=== PATIENT | female | born 1985 | race Caucasian/White ===

== ENCOUNTER 2019-01-01 08:19 | Emergency (ER) | payer MEDICAID ==
[~2019-01-01] VITALS: Ht 162.6 cm; Wt 92.5 kg
[2019-01-01 08:28] VITALS: BP 128/90
--- NOTE | 2019-01-01 08:29 | NUR ---
PT AMB TO RESTROOM WITH STEADY GAIT
--- NOTE | 2019-01-01 08:31 | NUR ---
C/O NAUSEA X 2 WEEKS WITH VOMITING AND DIARRHEA X LAST NIGHT. DENIES BLOOD IN DIARRHEA. DENIES AB PAIN. 5/10 DISCOMFORT PAIN WITH VOMITING. BOWEL SOUNDS ACTIVE IN ALL 4 QUADRANTS. NON-TENDER, ROUND AND SOFT. VSS. [id number]. BED IS DOWN, LOCKED, BED RAIL X 1, ERMD TO SEE PT. PMH- DENIES
--- NOTE | 2019-01-01 08:49 | NUR ---
DR LOGAN AT BEDSIDE
[2019-01-01] MEDS ORDERED: ONDANSETRON 4 MG ODT PO ONE (09:00)
--- NOTE | 2019-01-01 09:04 | NUR ---
ZOFRAN PO ADMINISTERED.
--- NOTE | 2019-01-01 09:04 | NUR ---
PT BEING TAKEN TO XRAY VIA WHEELCHAIR
--- NOTE | 2019-01-01 09:48 | NUR ---
PT TALKING ON HER PHONE, STATES SHE STILL FEELS VERY NAUSEATED AFTER ZOFRAN PO. NO VOMITING AT THIS TIME. DR LOGAN NOTIFIED.
[2019-01-01 11:00] VITALS: BP 117/84
--- NOTE | 2019-01-01 11:00 | NUR ---
Patient discharged with v/s stable. Written and verbal after care instructions given and explained. Patient alert, oriented and verbalized understanding of instructions. Ambulatory with steady gait. All questions addressed prior to discharge. ID band removed. Patient advised to follow up with PMD. Rx of ZOFRAN given. Patient educated on indication of medication including possible reaction and side effects. Opportunity to ask questions provided and answered. PT GIVEN EXCUSE FOR WORK AND A COPY OF XRAY RESULTS
== END 2019-01-01 11:00 | disposition home or self-care (01) ==
LOC: MED 08:19
DX: R11.2 Nausea with vomiting, unspecified (principal); R19.7 Diarrhea, unspecified; R06.02 Shortness of breath
CPT/HCPCS: 74022; 81002; 81025; 99283; Q0162

== ENCOUNTER 2021-01-30 05:23 | Emergency (ER) | payer MEDICAID ==
[~2021-01-30] VITALS: Ht 162.6 cm; Wt 99.8 kg
[2021-01-30 05:28] VITALS: BP 125/81
--- NOTE | 2021-01-30 05:36 | NUR ---
patient to bed 3 ambulatory with urine cup for collection
--- NOTE | 2021-01-30 05:38 | NUR ---
RECEIVED IN BED 3 WITH C/O n/v/d and vertigo. patient has had nx1mth, vx1day, [id number] and vertigo for x1mth. patient has taken meclizine and zofran with no relief. denies pain but has discomfort. pmh: benign paroxysmal vertigo nka
[2021-01-30] MEDS ORDERED: NACL 0.9% 1,000 ML IV ONE (06:25)
[2021-01-30] MEDS ORDERED: PROCHLORPERAZINE 10 MG/2 ML VIAL IVP ONE (06:25)
--- NOTE | 2021-01-30 06:45 | NUR ---
iv established and medicated as ordered
--- NOTE | 2021-01-30 07:54 | NUR ---
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 WILL CONTINUE TO MONITOR.
[2021-01-30 08:36] LABS: BASOPHILS % (AUTO) 0.3 % (0.0-2.0); EOSINOPHILS # (AUTO) 0.1 K/uL (0-0.4); HEMATOCRIT 36.5 % (36-48); HEMOGLOBIN 12.3 g/dL (12.0-16.0); LYMPHOCYTES # (AUTO) 3.1 K/uL (2.5-16.5); LYMPHOCYTES % (AUTO) 31.9 % (20.5-51.1); MEAN CORPUSCULAR HEMOGLOBIN 30 pg (27-31); MEAN CORPUSCULAR HGB CONC 34 g/dL (33-37); MEAN CORPUSCULAR VOLUME 88.5 fL (80-94); MONOCYTES # (AUTO) 0.7 K/uL (0.8-1.0); MONOCYTES % (AUTO) 7.2 % (1.7-9.3); NEUTROPHILS # (AUTO) 5.7 K/uL (1.8-7.7); NEUTROPHILS % (AUTO) 59.6 % (42.2-75.2); PLATELET COUNT (AUTO) 346 K/uL (140-450); RED BLOOD CELL COUNT(AUTO) 4.13 MIL/uL (4.20-5.40); RED CELL DISTRIBUTION WIDTH 13.4 % (11.6-13.7); WHITE BLOOD COUNT (AUTO) 9.6 K/uL (4.8-10.8)
[2021-01-30 08:48] LABS: ANION GAP 12.3 (8-16); CARBON DIOXIDE 25.6 mmol/L (21-32); CREATININE 0.8 mg/dL (0.6-1.3); POTASSIUM 3.9 mmol/L (3.5-5.1); TOTAL BILIRUBIN 0.2 mg/dL (0.0-1.0)
[2021-01-30] MEDS ORDERED: PROC-66 PO (09:28)
[2021-01-30 09:45] VITALS: BP 119/93
--- NOTE | 2021-01-30 09:45 | NUR ---
Patient discharged with v/s stable. Written and verbal after care instructions given and explained. Patient alert, oriented and verbalized understanding of instructions. Ambulatory with steady gait. All questions addressed prior to discharge. ID band removed. Patient advised to follow up with PMD. Rx of COMPAZINE given. Patient educated on indication of medication including possible reaction and side effects. Opportunity to ask questions provided and answered.
== END 2021-01-30 09:45 | disposition home or self-care (01) ==
LOC: MED 05:23
DX: R11.2 Nausea with vomiting, unspecified (principal); R19.7 Diarrhea, unspecified; R10.9 Unspecified abdominal pain; Z79.899 Other long term (current) drug therapy
CPT/HCPCS: 36415; 80053; 81025; 83690; 85025; 96361; 96374; 99283; J0780; J7030